=== PATIENT | female | born 1975 | race Caucasian/White ===

== ENCOUNTER → 2016-07-16 | Outpatient (CLI) | payer OTHER ==
[~2016-07-16] MED LIST: ALBUTEROL17 GM INH; ATENOLOL PO; BETAPACE PO; BIRTH CONTROL PILL PO; CARAFATE1 GM PO; CARBATROL200 MG PO; CARVEDILOL12.5 MG PO; CARVEDILOL6.25 MG PO; CELEXA20 MG PO; COREG12.5 MG PO; CRESTOR PO; CYANOCOBAL1000 MCG/M INJ; FERROUS SULFATE PO; GABAPENTIN600 MG PO; GLUCOPHAGE500 MG PO; HYDROCHLOROTHIA25 MG PO; HYDROCODON-ACE1 EA14 PO; HYDROXYZINE HCL25 M1 DOB; IBUPROFEN PO; IMITREX PO; IRON1 TA1 PO; LAMICTAL PO; LIPITOR PO; LISINOPRIL5 MG PO; LORATADINE PO; LYRICA75 MG PO; METFORMIN HCL500 M1 PO; METFORMIN PO; NAPROSYN500 MG PO; NEURONTIN PO; NEURONTIN300 MG PO; NYQUIL; OXYCODON HCL-AP1 TA2 PO; PATIENT'S PHARMACY; PERCOCET5/325 PO; PHENERGAN PO; PREDNISONE PO; QVAR7.3 GM INH; TOPAMAX50 MG DOB; TOPIRAMATE200 M1 PO; VICOPROFEN 200-1 TAB PO; XANAFLEX PO; ZOLOFT PO
--- NOTE | ~2016-07-16 | CR170 ---
[facility] of [facility] & [facility] RADIOLOGY TEXT RESULTS PATIENT: SKYLER JEAN LOCATION: [facility] : 75 UNIT #: [id number] AGE: [address]: ARELI IQBAL SEX: F ORDER DR: [id number] [facility] [address] [place], [place] [address] [id number] O MR#: [id number] Acc #: [id number] NAME: SKYLER JEAN : 1975 SEX: F STUDY DATE/TIME: 07/16/2016 16:12 UNIT: [facility] ROOM: STUDY DESCRIPTION: CR Knee 2 Views Rt Ordering Physician: Physician Non-Staff Primary Care Physician: Francoise Phillips M.D. MEDICAL IMAGING REPORT This report is preliminary unless electronic signature is present EXAM Right knee 2 views 07/16/2016 HISTORY Right knee pain for 2 months and instability. No known injury. FINDINGS AP and lateral projection of the knee shows smooth articular anatomy without indication of fracture or dislocation at the major weight-bearing surface of the knee. There is no indication of radiopaque foreign body about the knee surface or joint effusion. IMPRESSION Normal knee. Dictated by... Roby Bautista M.D. THIS IS AN ELECTRONICALLY VERIFIED REPORT Roby Bautista M.D. at 07/17/2016 8:12 AM KRT/pcl TD: 07/16/2016 23:08 JOB #: [id number] MEDICAL IMAGING REPORT Page 1 of 1 COPY
== END | disposition home or self-care (01) ==
LOC: CRAD 15:55
DX: M25.561 Pain in right knee (principal); M23.51 Chronic instability of knee, right knee
CPT/HCPCS: 73560

== ENCOUNTER → 2016-07-27 | Outpatient (CLI) | payer OTHER ==
[2016-07-27 15:55] LABS: ALBUMIN SERUM 4.5 g/dL (3.5-5.0); BILIRUBIN, DIRECT 0.2 mg/dL (0.0-0.2); BILIRUBIN,INDIRECT 0.9 mg/dL (0.0-0.9); BILIRUBIN,TOTAL 1.1 mg/dL (0.2-2.0); PROTEIN TOTAL SERUM 7.1 g/dL (6.0-8.3)
== END | disposition home or self-care (01) ==
LOC: CLAB 14:39
PROVIDERS: Podiatrist Foot & Ankle Surgery
DX: Z51.81 Encounter for therapeutic drug level monitoring (principal); Z79.899 Other long term (current) drug therapy
CPT/HCPCS: 36415; 80076

== ENCOUNTER 2016-09-24 20:39 | Emergency (ER) | payer OTHER ==
[~2016-09-24] VITALS: Ht 180.3 cm; Wt 90.7 kg
--- NOTE | ~2016-09-24 | CR262 ---
[facility]. [facility] A Service of [facility] & [facility] RADIOLOGY TEXT RESULTS PATIENT: SKYLER JEAN LOCATION: SED : 75 UNIT #: [id number] AGE: [address]: Marti Murguia SEX: F ORDER DR: [id number] [address] [address] [id number] E MR#: [id number] Acc #: [id number] NAME: SKYLER JEAN : 1975 SEX: F STUDY DATE/TIME: 09/24/2016 21:32 UNIT: SED ROOM: STUDY DESCRIPTION: CR Toe 2 Views Great Lt Attending Physician: Marti Murguia Pa-C Ordering Physician: Marti Murguia Pa-C Primary Care Physician: Francoise Phillips M.D. MEDICAL IMAGING REPORT This report is preliminary unless electronic signature is present. EXAM Left great toe 09/24/2016 HISTORY 41-year-old female with left great toe pain after stumping toe going up stairs yesterday. COMPARISON None. FINDINGS 2 views of the left great toe demonstrate no acute fracture or dislocation. Soft tissues are unremarkable. IMPRESSION Unremarkable left great toe Dictated by... Quintin Henry M.D. THIS IS AN ELECTRONICALLY VERIFIED REPORT Quintin Henry M.D. at 09/25/2016 10:05 AM BRIGITTE/desiree TD: 09/25/2016 05:22 JOB #: [id number] MEDICAL IMAGING REPORT Page 1 of 1
[~2016-09-24 20:39] MED LIST changes: -BETAPACE PO; -GABAPENTIN600 MG PO; -HYDROCODON-ACE1 EA14 PO; -IMITREX PO; -LAMICTAL PO; -NAPROSYN500 MG PO; -PHENERGAN PO; -XANAFLEX PO
[2016-09-24] MEDS ORDERED: HYDROCODON-ACE1 EA14 PO (21:05)
[2016-09-24] MEDS ORDERED: GABAPENTIN600 MG PO (21:06)
[2016-09-24] MEDS ORDERED: XANAFLEX PO (21:06)
[2016-09-24] MEDS ORDERED: LAMICTAL PO (21:07)
[2016-09-24] MEDS ORDERED: IMITREX PO (21:08)
[2016-09-24] MEDS ORDERED: BETAPACE PO (21:08)
[2016-09-24] MEDS ORDERED: NAPROSYN500 MG PO (21:09)
[2016-09-24] MEDS ORDERED: PHENERGAN PO (21:09)
== END 2016-09-24 22:11 | disposition home or self-care (01) ==
LOC: SED 20:39
DX: S91.112A Laceration without foreign body of left great toe without damage to nail, initial encounter (principal); Z79.899 Other long term (current) drug therapy; Z23 Encounter for immunization; X58.XXXA Exposure to other specified factors, initial encounter; Y92.89 Other specified places as the place of occurrence of the external cause
CPT/HCPCS: 73660; 90471; 90715; 99283